=== PATIENT | male | born 1940 | race Caucasian/White ===

== ENCOUNTER 2017-05-27 11:19 | Day surgery (SDC) | payer MEDICARE, BC ==
[~2017-05-27 11:19] MED LIST: ALBU1AER INH; ALLO300T2 PO; ASPI81TA82 PO; AVAP300T PO; CALC500T42 PO; CHEL50TA PO; GABA100C4 PO; LASI20TA PO; LORA-474 PO; OMEP20TA39 PO; PROMSYP39 PO; ROSU40 PO; SYMB80AE INH; VITA100017 PO; VITA100020 PO; VITA20003 PO; Z.0.WALKERFRONT; ZYRT10TA12 PO
[2017-05-27] MEDS ORDERED: VANCOMYCIN HCL 1000 MG VIAL ONE (11:35)
[2017-05-27] MEDS ORDERED: ALLO300T2 PO (12:21)
[2017-05-27] MEDS ORDERED: VITA250T3 PO (12:21)
[2017-05-27] MEDS ORDERED: ALBUAER3 INH (12:21)
[2017-05-27] MEDS ORDERED: [UNRECOGNIZED DRUG - CODE] PO (12:21)
[2017-05-27] MEDS ORDERED: IRBE300T11 PO (12:21)
[2017-05-27] MEDS ORDERED: LORA1TAB12 PO (12:21)
[2017-05-27] MEDS ORDERED: ROSU40 PO (12:21)
[2017-05-27] MEDS ORDERED: GABA100C4 PO (12:21)
[2017-05-27] MEDS ORDERED: OMEP40CA2 PO (12:21)
[2017-05-27] MEDS ORDERED: OCUVTAB4 PO (12:21)
[2017-05-27] MEDS ORDERED: FURO20TA PO (12:21)
[2017-05-27] MEDS ORDERED: VITA1000 PO (12:21)
[2017-05-27] MEDS ORDERED: ALEV220T14 PO (12:21)
[2017-05-27] MEDS ORDERED: OMEGCAP PO (12:21)
[2017-05-27] MEDS ORDERED: ZINC50TA2 PO (12:21)
[2017-05-27] MEDS ORDERED: PLAV75TA29 PO (12:21)
[2017-05-27] MEDS ORDERED: VITATAB43 PO (12:21)
[2017-05-27] MEDS ORDERED: SYMB160A INH (12:22)
[2017-05-27] MEDS ORDERED: CALC600T4 PO (12:22)
[2017-05-27] MEDS ORDERED: zyrtec PO (12:22)
--- NOTE | 2017-05-27 22:44 | MR ---
cc: LYNETTE MIRZA DATE 05/27/17 INDICATION CVA, evaluation for atrial fibrillation. PROCEDURE PERFORMED Placement of Medtronic Reveal LINQ MRI compatible loop monitor. ACCESS SITE Left subclavicular area. EQUIPMENT USED Medtronic Reveal LINQ model LNQ11, MRI compatible loop monitor, serial number [id number]. PROCEDURE The patient was prepped and draped in the usual sterile manner. Local anesthesia was applied. Medtronic Reveal LINQ monitor was placed in the left subclavicular area. R-wave was 0.33 mV. The patient was stable and was discharged home in stable condition. DIAGNOSIS Successful of Med[employer] Reveal LINQ MRI compatible loop monitor. DISPOSITION Mr. Gillespie will continue his current medical program. I will see him back for a wound check within 2 weeks. We will then initiate long-term monitoring of his device. Lynette Mirza MD OQ/EO /1:39 PM /10:27 PM MTDHui
--- NOTE | 2017-05-28 17:01 | EKG ---
Date Performed: 05/27/2017 Time Performed: 12:28:16 PTAGE: 77 years EKG: Sinus rhythm . Possible inferior infarct - age undetermined Since previous tracing, no significant change noted Ab normal ECG PREVIOUS TRACING : 10/09/2014 20.03 DOCTOR: Nakia Felipe Interpretating Date/Time 05/28/2017 17:00:18
[2017-05-30] MEDS ORDERED: CETI10 PO (10:50)
== END 2017-05-27 15:34 | disposition home or self-care (01) ==
LOC: HDOC 11:19 → HDIC 11:20 → HDOC 15:34
PROVIDERS: ATTEND Internal Medicine Interventional Cardiology
DX: I48.2 Chronic atrial fibrillation (principal); I25.10 Atherosclerotic heart disease of native coronary artery without angina pectoris; E78.5 Hyperlipidemia, unspecified; I10 Essential (primary) hypertension; N19 Unspecified kidney failure; J44.9 Chronic obstructive pulmonary disease, unspecified; I36.1 Nonrheumatic tricuspid (valve) insufficiency; I51.7 Cardiomegaly; M19.90 Unspecified osteoarthritis, unspecified site; Z86.73 Personal history of transient ischemic attack (TIA), and cerebral infarction without residual deficits; Z79.01 Long term (current) use of anticoagulants; Z79.1 Long term (current) use of non-steroidal anti-inflammatories (NSAID); Z79.82 Long term (current) use of aspirin; Z79.51 Long term (current) use of inhaled steroids; Z79.899 Other long term (current) drug therapy
CPT/HCPCS: 33282; 93005; C1764; J3370